=== PATIENT | female | born 1990 | race Caucasian/White ===

== ENCOUNTER 2017-01-04 17:00 | Emergency (ER) | payer OTHER ==
[2017-01-04 17:59] LABS: #Basophils 0.1 thou/uL (0.0-0.2); #Eosinphils 0.1 thou/uL (0.0-0.7); #Lymphocytes 2.3 thou/uL (1.20-3.40); #Monocytes 0.7 thou/uL (0.11-0.59); #Neutrophils 5.2 thou/uL (1.40-6.50); %Basophils 0.9 % (0.0-1.0); %Eosinophils 0.7 % (0.0-10.0); %Lymphocytes 27.6 % (21.0-51.0); %Monocytes 8.7 % (0.0-10.0); Hematocrit 37.9 % (36.0-47.0); Mean Platelet Volume 7.6 fL (7.4-10.4); Red Blood Cell (RBC) Count 4.16 mill/uL (4.20-5.40); White Blood Cell (WBC) Count 8.3 thou/uL (4.8-10.8)
[2017-01-04 18:13] LABS: Bilirubin Negative (Negative); Blood, Urine Small (Negative); Glucose, Urine (Dipstick) Negative (Negative); Ketone, Urine Negative (Negative); Nitrite Negative (Negative); Protein, Urine (Dipstick) Negative (Neg-Trace)
[2017-01-04 18:16] LABS: RBC/HPF 0-3 HPF (0-3); Squamous Epithelial 0-3 HPF (0-3); WBC/HPF 0-3 HPF (0-3)
[2017-01-04 18:17] LABS: Bacteria/HPF None Seen HPF (None Seen); Hyaline Casts/LPF 0-3 HYALINE CAST LPF (0-3 Hyaline)
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
[2017-01-04 19:28] LABS: Anion Gap 15 mmol/L (10-20); BUN (Urea Nitrogen) 11 mg/dL (7.0-18.7); Calc. Creatinine Clearance 0 mL/min (70-130); Calcium 9.6 mg/dL (7.8-10.44); Carbon Dioxide 23 mmol/L (22-29); Chloride 106 mmol/L (98-107); Estimated GFR-MDRD 77
[2017-01-04] MEDS ORDERED: Promethazine HCl 25 MG/ML VIAL ONE (19:36)
[2017-01-04] MEDS ORDERED: Acetaminophen 500 MG TAB ONE (20:36)
[2017-01-04] MEDS ORDERED: Cyclobenzaprine 10 MG TAB ONE (21:09)
[2017-01-04] MEDS ORDERED: Ketorolac Tromethamine 30 MG/ML VIAL ONE (21:09)
== END 2017-01-04 21:18 | disposition home or self-care (01) ==
LOC: SCSER 17:00
DX: N93.9 Abnormal uterine and vaginal bleeding, unspecified (principal); R10.32 Left lower quadrant pain; R10.31 Right lower quadrant pain; R11.2 Nausea with vomiting, unspecified
CPT/HCPCS: 51701; 76856; 80048; 81003; 81015; 84702; 85025; 86900; 86901; 87480; 87491; 87510; 87591; 87660; 96365; 96375; A4353; J1885; J2550

== ENCOUNTER 2017-06-26 07:24 | Emergency (ER) | payer SELFPAY ==
[2017-06-26] MEDS ORDERED: Metoclopramide HCl 10 MG/2 ML VIAL ONE (07:45)
[2017-06-26] MEDS ORDERED: methylPREDNISolone Sod Succ/PF 125 MG/2 ML VIAL ONE (07:45)
[2017-06-26] MEDS ORDERED: Ketorolac Tromethamine 30 MG/ML VIAL ONE (07:45)
[2017-06-26] MEDS ORDERED: diphenhydrAMINE 50 MG/ML VIAL ONE (07:45)
--- NOTE | 2017-06-26 08:57 | CT ---
CT HEAD NONCONTRAST: HISTORY: Head injury. Headache and vomiting. FINDINGS: No comparison. There is no evidence of acute intracranial hemorrhage or infarct. Ventricles appear normal in size, shape, and position. There is no mass effect or shift of midline structures. Visual ized paranasal sinuses remain well aerated. IMPRESSION: No acute intracranial abnormalities are demonstrated. POS: [facility]
== END 2017-06-26 08:45 | disposition home or self-care (01) ==
LOC: SCSER 07:24
DX: S09.90XA Unspecified injury of head, initial encounter (principal); R11.10 Vomiting, unspecified; Z79.899 Other long term (current) drug therapy; W50.0XXA Accidental hit or strike by another person, initial encounter
CPT/HCPCS: 70450; 96365; 96375; J1200; J1885; J2765; J2930

== ENCOUNTER 2018-04-30 09:42 | Outpatient (CLI) | payer OTHER | END 2018-04-30 09:43 | disposition home or self-care (01) | LOC: EEG 09:42 | PROVIDERS: ATTEND Psychiatry & Neurology Neurology | DX: G40.209 Localization-related (focal) (partial) symptomatic epilepsy and epileptic syndromes with complex partial seizures, not intractable, without status epilepticus (principal) | CPT/HCPCS: 95816 ==

== ENCOUNTER 2018-11-19 17:22 | Observation (INO) | payer OTHER ==
[2018-11-19] MEDS ORDERED: hydrALAZINE 20 MG/ML VIAL SLOW IVP PRN (18:56)
[2018-11-19] MEDS ORDERED: FLU VACC QS2019-20(6MOS UP)/PF 60 MCG/0.5 ML SYRINGE IM ONE (19:15)
[2018-11-19 19:32] LABS: Bilirubin Negative (Negative); Blood, Urine 1+ (Negative); Clarity Clear (Clear); Glucose, Urine (Dipstick) Normal (Negative); Leukocyte Negative Leu/uL (Negative); Nitrite Negative (Negative); Protein, Urine (Dipstick) Negative (Neg-Trace); RBC/HPF 0-3 HPF (0-3); Squamous Epithelial 0-3 HPF (0-3); Urobilinogen Normal mg/dL (Less than 2); WBC/HPF 0-3 HPF (0-3)
[2018-11-19 19:33] LABS: Bacteria/HPF 1+ HPF (None Seen)
--- NOTE | 2018-11-19 19:56 | ULT ---
ULTRASOUND OBSTETRICAL COMPLETE: DATE: 11/19/2018 HISTORY: 28-year-old female in second trimester of . Evaluate weight, position, and ce rvical length. FINDINGS: number: brown lie: Breech Maternal cervix: 4 cm. Closed internal cervical os. There is material of low to intermediate echogen icity in the cervical canal, which may represent mucous plug. Placenta: Posterior. No placenta previa. Amniotic fluid volume: RACHEAL = 10.5cm heart rate: 131 bpm The following anatomy is visualized, with no evidence of anomalies: Urinary bladder, bilateral kidneys, four-chamber heart, stomach, and posterior fossa. biometry: Biparietal diameter (BPD): 5.5 cm 22 w 4 d Head circumference (HC): 22.1 cm 24 w 1 d Abdominal circumference (AC): 19.2 cm 24 w 0 d Femur length (FL): 4.1 cm 23 w 1 d Average ultrasound age (AUA): 23 w 3 d Estimated date of delivery (CRISTINA): 03/15/2019 Estimated weight (EFW): 611 g +/- 90 g IMPRESSION: 1) Live 2nd trimester intrauterine gestation. 2) Estimated gestational age of 23 weeks, 3 days 3) breech lie. 4) cervical length 4 cm.
[2018-11-19] MEDS ORDERED: Zolpidem Tartrate 5 MG TAB PO PRN (20:49)
[2018-11-19] MEDS ORDERED: Ondansetron ODT 8 MG TAB SL PRN (20:49)
[2018-11-19] MEDS ORDERED: Lactated Ringer's 1,000 ML IV SCH (21:00)
[2018-11-19] MEDS: Lactated Ringer's 1,000 ML IV SCH (21:52)
[2018-11-19] MEDS: Ondansetron PF 4 MG/2 ML Vial IVP PRN (22:12)
[2018-11-19] MEDS ORDERED: Morphine 4 MG/ML VIAL SLOW IVP SCH (22:30)
[2018-11-20] MEDS ORDERED: Indomethacin 25 mg Capsule PO SCH ×2 (01:15→06:00)
[2018-11-20] MEDS ORDERED: Morphine 4 MG/ML VIAL SLOW IVP SCH (01:15)
[2018-11-20] MEDS: Ondansetron PF 4 MG/2 ML Vial IVP PRN (04:12)
[2018-11-20] MEDS: Lactated Ringer's 1,000 ML IV SCH (06:06)
--- NOTE | 2018-11-20 08:25 | HP ---
PRIMARY OB: Dr. Gamaliel Dalton. CHIEF COMPLAINT: Vaginal bleeding and contraction pains. HISTORY OF PRESENT ILLNESS: The patient is a 28-year-old, G3, P1, female with an intrauterine at 25 weeks and 2 days, who has presented to the emergency room with vaginal bleeding and uterine contractions. The patient reports that she was at work and started feeling crampy and contractions and after work, came home and on the advice of her doctor tried to hydrate and rest. During this process , the patient took a long shower, at which time she noticed some blood mixing with the water and had some spotting afterwards on her pad. Without resolution of her symptoms, the patient came to the emergency room for further evaluation. The patient reports that she was feeling initially these contractions about every 5 to 7 minutes. Upon presentation, the patient reports that she has had very little bleeding on her pad and reports over time that her contractions have spaced, though some of them do have more of a pain quality to them than others. She reports that she is having about 4 to 5 contractions an hour, about two of them she report is painful. The patient denies any recent falls or trauma. She does report recent illness with diet of nausea, persistent vomiting, and diarrhea earlier in the week that prompted an ER visit for IV hydration and potassium replacement. The patient denies cough. Denies chest pain or shortness of breath. The patient has had nausea and vomiting throughout the that she has been managing with Bonjesta twice a day and Phenergan p.r.n. that she takes on average about once a day. The patient denies diarrhea or constipation currently. She denies any rashes. She has some hip soreness. Denies muscle weakness. Denies change in her discharge other than the bleeding that we have described. Denies urinary urgency or frequency. PAST MEDICAL HISTORY: Inappropriate sinus tachycardia, has been off medication for about a year now. The patient was diagnosed with strep throat in the end of September and was placed on a Z-[place]. Seasonal allergies. PAST SURGICAL HISTORY: She has had two left knee arthroscopies. ALLERGIES: NO KNOWN DRUG ALLERGIES. SOCIAL HISTORY: Denies drug, alcohol, or tobacco use during this . Reports that she has occasional alcohol prior to the . MEDICATIONS: The patient is on, 1. Bonjesta b.i.d. 2. Phenergan approximately once a day. 3. vitamin daily. 4. Magnesium. 5. Potassium supplements. OB LABS: Unavailable at the time of dictation. REVIEW OF SYSTEMS: Per HPI. PHYSICAL EXAMINATION: VITAL SIGNS: Blood pressure on arrival 126/76, heart rate of 82, respiratory rate 16, and temperature 98.0. GENERAL: She appears to be in no acute distress. She does look worried and tired. She is otherwise alert and oriented, cooperative and pleasant to interact with. HEENT: Head is normocephalic and atraumatic. LUNGS: Clear to auscultation bilaterally. HEART: Regular rate and rhythm. ABDOMEN: Gravid and soft. She does have some tenderness with deviation of the uterus to the left and right. In her lower pelvis, she has some minimal fundal tenderness. No tenderness to palpation in the body of the uterus. EXTREMITIES: Nontender. Nonedematous. Vulva is without masses, lesions, or erythema. GENITALIA: On cervical exam, the patient does have some discharge and a very small amount of blood clots marred on the outside of the cervix. No active bleeding visible. The patient did get some bleeding return with manipulation of the cervix with a large [place] Q-tip. Cervical exam, the patient's cervix is fingertip and thick. heart tracing shows a fetus with baseline in 130s with moderate long-term variability. Contraction, she has a lot of irritability and irregular contractions, very different in shape and size and duration. Many of the contractions appear flat topped with irregular peaks and valleys. LABORATORY DATA: Urinalysis is negative for ketones, 1+ blood, negative for nitrites, negative for leukocyte esterase, negative white blood cells, negative squamous cells, 1+ bacteria. VP3 is negative for Trichomonas, Gardnerella, and Haylie. GC and Chlamydia are pending. Through the night, the patient has experienced occasional contractions. Again, she reports about 4 to 5 in an hour where at times 1 to 2 an hour would be painful. She reports that they last about 20 seconds. This repeat cervical exam approximately 9 hours from her previous exam is unchanged. Ultrasound done at the time of presentation shows a fetus measuring 611 g. Cervical length of 4 cm in breech presentation with RACHEAL of 10.5. She has had a dark brown smear on her pad overnight. ASSESSMENT AND PLAN: The patient is a 28-year-old, G3, P1, female with an intrauterine at 25 weeks and 2 days, who was admitted overnight for observation due to some bleeding, a fingertip dilated cervix and crampiness. Over the course of the night, the nature of her contractions or crampiness has been unchanged. Her cervix has been unchanged. Repeating a cervical length this morning to see if there is any to document or observe change. The patient has been given reassurance. She has been given two doses of morphine through the night and Ambien. The patient has been unable to sleep, which has been a chronic problem for her. I am repeating the ultrasound this morning to compare cervical length again and the patient is on Indocin as this seems to help ease her contractions for time. Bleeding has not progressed or continued. I have updated Dr. Dr. Kristin Dalton last night and should the ultrasound show no change in her cervix, we will reassess and consider discharge home. Her urinalysis though negative for nitrites, white blood cells, or leukocyte esterase, does have presence of bacteria, any absence of squamous cells. The patient has recently been on antibiotics in the last month. Given the bacteria, we will treat her with Macrobid at this time. Fetus has been reassuring for gestational age. addendum: repeat cervical length unchanged. Job ID: [id number] [facility]
--- NOTE | 2018-11-20 08:35 | PDOC.EVN ---
Event Note - Event Note Event Note: DISCHARGE NOTE At Bedside now. EGA 25 weeks I reviewed case with Dr Garcia this AM Patient has been watched overnight. Repeat CX length by evelyn was 4cm (4cm x2). Patient received indocin here for conservative care. feels better now No LOF, no corin VB FHTS reviewed...ok for WGA. Normal rate 120-130s Abd soft Final assessment and plan: Stable at 25 weeks with normal cervical length X2. ASB on UA. I have covered this information with the Patient. OK for outpateint care with roque and follow up next week with Dr Dalton. No intercourse x 2 weeks
[2018-11-20 08:41] VITALS: BMI 26.3
[2018-11-20] MEDS ORDERED: Nitrofurantoin Monohyd/M-Cryst 100 MG CAP PO SCH (09:00)
[2018-11-20 09:16] VITALS: BP 112/62; TEMP 98.7
--- NOTE | 2018-11-20 09:20 | PDOC.EVN ---
Event Note - Event Note Event Note: Note on Steroids in this case: Steroids were not ordered in this case as cervical length was greater than 4cm twice. Also, even if there was a small marginal placental separation, the patient is clinically stable and I do not suspect delivery within the next 2 weeks at this time. Patient has been DC to home in good and stable condition. We will order RH type now
--- NOTE | 2018-11-20 09:53 | PRG ---
DATE OF SERVICE: 11/20/2018 SUBJECTIVE: The patient was admitted overnight for observation secondary to uterine contractions and some vaginal bleeding at 25 weeks' gestation. Initial evaluation showed a cervix that was 4 cm in length, fingertip on exam with no active bleeding present. Through the night, she has required 2 doses of morphine and ultimately, placed on Indocin in an effort to quiet down what she is feeling. Repeat ultrasound this morning about 12 hours from her previous exam shows no change in her cervical length or findings. Repeat digital exam shows also no change. The patient reports that she feels about 2 contractions in an hour that she would report is painful and several others that she would not. The patient has been without an appetite due to nausea, which is a chronic problem for her, so she reports that she consumes about 3 quarts of water a day. OBJECTIVE: VITAL SIGNS: Within normal limits. GENERAL: She appears to be in no acute distress. She is alert, oriented, cooperative, and pleasant to interact with. HEAD: Normocephalic, atraumatic. LUNGS: Clear to auscultation bilaterally. ABDOMEN: Tender with deviation to the left and right, but unchanged from yesterday. CERVICAL: She is fingertip and thick with no presenting part palpable. LABORATORY DATA: Urinalysis shows 1+ bacteria, no squamous cells, no leukocyte esterase, no nitrites. ASSESSMENT AND PLAN: The patient is a 28-year-old female, 25 weeks and 5 days with contractions with isolated bleeding. There is no evidence of labor. She has a long cervix to 4 cm that is remained stable over the 12 hours and has bacteria for which we will be treating her with Macrobid. The oncoming physician, Dr. Lozoya, will be giving her disposition, anticipate discharge home. Job ID: [id number]
--- NOTE | 2018-11-20 10:35 | ULT ---
OB ULTRASOUND LIMITED: Date: 11/20/18 HISTORY: Evaluation for cervical length. COMPARISON: Prior day's study. FINDINGS: Real-time imaging was obtained transabdominally. The cervical canal length is 3.9 cm. heart rat e is 133 beats/minute. Fetus is breech in presentation. Placenta is posterior. On the transvaginal im aging, the cervical canal length is measured at 4.0 cm. There is a small amount of fluid seen within the cervical canal. IMPRESSION: Cervical canal length of 4.0 cm. Small amount of fluid is seen within the cervical canal. POS: [facility]
[2018-11-22 14:47] LABS: Chlamydia by PCR Not Detected (NotDetected); GC by PCR Not Detected (NotDetected)
== END 2018-11-20 09:11 | disposition home health service (06) ==
LOC: L&D/OP 17:22 → L&D 22:32
PROVIDERS: ADMIT Obstetrics & Gynecology; ATTEND Obstetrics & Gynecology
DX: O47.02 False labor before 37 completed weeks of gestation, second trimester (principal); O46.92 Antepartum hemorrhage, unspecified, second trimester; Z3A.25 25 weeks gestation of pregnancy; Z79.899 Other long term (current) drug therapy
CPT/HCPCS: 76815; 81001; 87480; 87491; 87510; 87591; 87660; 96361; 96374; 96375; 96376; G0378; J2270; J2405

== ENCOUNTER 2018-11-26 12:10 | Observation (INO) | payer OTHER ==
[2018-11-26 12:49] VITALS: BMI 27.1
[2018-11-26] MEDS ORDERED: hydrALAZINE 20 MG/ML VIAL SLOW IVP PRN (13:11)
[2018-11-26 13:37] LABS: Bacteria/HPF None Seen HPF (None Seen); Bilirubin Negative (Negative); Blood, Urine Negative (Negative); Clarity Clear (Clear); Glucose, Urine (Dipstick) Normal (Negative); Leukocyte Negative Leu/uL (Negative); Nitrite Negative (Negative); Protein, Urine (Dipstick) Negative (Neg-Trace); RBC/HPF 0-3 HPF (0-3); Squamous Epithelial None Seen HPF (0-3); Urobilinogen Normal mg/dL (Less than 2); WBC/HPF 0-3 HPF (0-3)
[2018-11-26 13:42] LABS: #Lymphocytes 1.8 thou/uL (1.20-3.40); #Monocytes 0.6 thou/uL (0.11-0.59); #Neutrophils 7.6 thou/uL (1.40-6.50); %Basophils 0.2 % (0.0-1.0); %Eosinophils 0.4 % (0.0-10.0); %Lymphocytes 17.7 % (21.0-51.0); %Monocytes 6.1 % (0.0-10.0); %Neutrophils 75.7 % (42.0-75.0); Hemoglobin 11.4 g/dL (12.0-16.0); Mean Corpuscular HGB CONC 35.8 g/dL (32.0-36.0); Mean Corpuscular Hemoglobin 33.3 pg (27.0-31.0); Mean Corpuscular Volume 92.9 fL (78.0-98.0); Mean Platelet Volume 7.5 fL (7.4-10.4); Platelet Count 302 thou/uL (130-400); RBC Distribution Width 11.3 % (11.5-14.5); Red Blood Cell (RBC) Count 3.43 mill/uL (4.20-5.40)
[2018-11-26 13:47] LABS: Urine Culture Reflex No No
--- NOTE | 2018-11-26 14:39 | ULT ---
Exam: Limited OB ultrasound HISTORY: Evaluate cervical length. Patient has bleeding COMPARISON: 11/19/2018, 11/20/2018 TECHNIQUE: Sagittal and transverse imaging of the gravid uterus is performed. FINDINGS: Cervix is redemonstrated, measuring between 4.3 and 4.6 cm. Currently, the cervix has a slightly hete rogeneous echotexture. Previously, the cervix and a fluid-filled echotexture. Currently, cervical diameter is approximately 1.0 to 1.5 cm. There is a posterior grade 3 placenta. Breech presentation. heart tones with a rate of 131 to 144 bpm. biometry: BPD 5.61 cm, 23 weeks 1 day Head circumference 22.32 cm, 24 weeks 2 days Abdominal circumference 18.18 cm, 23 weeks 0 days Femur length 4.17 cm, 23 weeks 4 days Average age by sonography is 23 weeks 4 days with estimated delivery date of 03/21/2019. Estimated feta l weight is 587 g +/- 87 g. On 11/19/2018, estimated weight was 611 g +/- 90 g. At that time the average age by sonography i s 23 weeks 3 days. There does not appear to be any significant interval growth. Amniotic fluid index is 8.5 cm IMPRESSION: 1. Single intrauterine gestation with heart tones. Average age by sonography is 23 weeks 4 days . There does not appear to be any significant interval growth. 2. Cervical length between 4.3 and 4.6 cm. Heterogeneous echotexture of the cervix may represent bloo d products. 3. Posterior, grade 3 placenta. 4. The results of the examination were given to the L&D nurse by the mechanical service specialist 11/26/2018 at the co mpletion of exam Code CR Transcribed Date/Time: 11/26/2018 3:01 PM
[2018-11-26] MEDS: Betamet Acet/Betamet Na Ph 30 MG/5 ML VIAL IM SCH (16:29)
--- NOTE | 2018-11-26 17:39 | HP ---
TIME OF SERVICE: 1710 hours. REASON FOR ADMISSION: Cervical dilatation with vaginal bleeding, possible growth restriction, and abnormal placenta at 26 weeks' gestation. HISTORY OF PRESENT ILLNESS: Ms. Riggins is a 28-year-old 3, para 1, AB 1 at [address] weeks, who sees Dr. Gamaliel Dalton. This is now her 2nd visit to Labor and Delivery in the last 7 days with the same complaints of some vaginal bleeding and small amount of contractions. She denies rupture of membranes. She reports an active fetus. She has no other complaints. Previous presentation to Labor and delivery, she was noted to have a 4 cm cervix with fluid noted in the canal. PAST MEDICAL HISTORY: Significant for; 1. Inappropriate sinus tachycardia, off medicines. 2. Seizure disorder, that was noted prepregnancy, that has resolved in and not had further evaluation. SURGICAL HISTORY: Knee arthroscopy x2. ALLERGIES: DENIES. MEDICATIONS: 1. vitamins. 2. Bonjesta. 3. Phenergan. 4. Magnesium. 5. Potassium. SOCIAL HISTORY: Denies tobacco, alcohol, or IV drug abuse. FAMILY HISTORY: Noncontributory. REVIEW OF SYSTEMS: Noncontributory. PHYSICAL EXAMINATION: GENERAL: White female, resting comfortably. VITAL SIGNS: Temperature 98.5, respirations 18, blood pressure 118/72, and pulse 85. HEENT: Within normal limits. LUNGS: Clear to auscultation bilaterally. HEART: Regular rate and rhythm. ABDOMEN: Soft and nontender with a fundal height of 25 cm, FHT is 140s. Vulva without lesions. Vagina without discharge. Cervix was anterior and soft. It was approximately 1 cm and its outer half on digital exam. EXTREMITIES: Without clubbing, cyanosis, or edema. DIAGNOSTIC STUDIES: Ultrasound reveals cervix measuring 4 cm or greater with heterogeneous echotexture with some fluid and the cervical diameter was approximately 1 to 1.5 cm. The placenta was noted to be posterior and was graded as grade 3 by the radiologist in breech presentation with FHTs of 130s to 140s. Composite gestational age is 23 weeks and 5 days with EFW of 587, which is unchanged from ultrasound performed a week ago. Amniotic fluid index was 8.5 cm. monitoring has been carried out with no spontaneous decelerations and no significant contractions noted. LABORATORY DATA: The patient's white count is 10,000 and hematocrit is 31.9 with normal platelet count. Urinalysis was negative. Blood bank, the patient was noted to be A positive. A KB stain was performed, which revealed 0.00% cells. IMPRESSION: A 26 weeks gestation with a subjectively and objectively slightly dilated cervix that is anterior, but without effacement. No contractions are noted; however, ultrasound suggests possible growth restriction and advanced age, placenta of uncertain etiology in significance. PLAN: After considering the patient's representation, continued occasional bleeding, and cervical exam that while not effaced, this is somewhat worrisome for the possibility of labor. We will go ahead and place the patient in observation status and administer betamethasone 12 mg IM q.24 h. x2 doses. We will do daily nonstress test and we will repeat ultrasound tomorrow and obtain umbilical artery Dopplers to assess if the placental appearance is impacting umbilical artery blood flow. The care plan has not been discussed with Dr. Dalton at this time, but will do so shortly. Job ID: [id number]
[2018-11-26] MEDS ORDERED: Ondansetron ODT 4 MG TAB PO PRN (18:30)
[2018-11-26] MEDS ORDERED: Acetaminophen 325 MG TAB PO PRN (18:30)
[2018-11-26] MEDS ORDERED: Calcium Carbonate 500 MG ChewTAB PO PRN (18:30)
[2018-11-26] MEDS ORDERED: Sodium Chloride 0.9% 10 ML ONE (20:09)
[2018-11-26 20:48] VITALS: BP 129/73; TEMP 98.2
--- NOTE | 2018-11-26 21:19 | PDOC.EVN ---
Event Note - Event Note Event Note: Called by RN< pt complains of back pain and vaginal pressure. Very active fetus. No bleeding currently but reports her cervix has been digitally checked many times in the last week and she has had some spotting since then. Pt denies fever or chills. Low back discomfort feels like menstrual cramps and is constant, started a few hours ago. VS WNL NAD, sitting up in bed nonlabored breathing gravid and NT abdomen, no ctx palpable NST reactive with ? uterine irritability FHT appropriate for GA A/P: Pt under observation, IVF 500ml bolus given and tylenol given orally. NST , patient interview and PE not concerning for labor in this moment. Discussed FU evalulation in 30 mins to an hour, heating pad and trial of flexeril for low back discomfort if it doesn't resolve w Tylenol reviewed.
[2018-11-26] MEDS ORDERED: Cyclobenzaprine 10 MG TAB PO PRN (21:22)
[2018-11-26] MEDS ORDERED: Sodium Chloride 0.9% 500 ML IV SCH (21:30)
[2018-11-27] MEDS ORDERED: Ondansetron PF 4 MG/2 ML Vial IVP PRN (00:30)
[2018-11-27] MEDS ORDERED: Promethazine HCl 25 MG/ML VIAL IM PRN (00:30)
[2018-11-27] MEDS ORDERED: hydrALAZINE 20 MG/ML VIAL SLOW IVP PRN (00:30)
[2018-11-27] MEDS ORDERED: NIFEdipine 10 MG CAP PO SCH (03:15)
[2018-11-27] MEDS: NIFEdipine 10 MG CAP PO SCH (04:42)
[2018-11-27 04:52] LABS: Amnisure Test No Membranes Rupture (No Rupture)
[2018-11-27 04:53] LABS: Amnisure Internal Control QC ACCEPTABLE (ACCEPTABLE)
[2018-11-27] MEDS: Acetaminophen 500 MG TAB PO PRN ×2 (05:05→16:56)
--- NOTE | 2018-11-27 07:46 | PRG ---
DATE OF SERVICE: 11/27/2018 TIME OF SERVICE: 7:25. SUBJECTIVE: Ms. Riggins was moved back to Labor and Delivery last night because of complaints of contraction on the floor. No significant contractions could be noted, but nurses felt uncomfortable with the patient's status. She had a small amount of old blood consistent with her previous complaints. She reports active fetus. She thought she had some drainage and AmniSure was checked which was negative. OBJECTIVE: VITAL SIGNS: Patient's blood pressure is 108/56, pulse 92, respirations 18, temperature 98.6. LUNGS: Clear to auscultation bilaterally. ABDOMEN: Soft and nontender with a fundal height of 26, and FHTs of 150s. PELVIC: Deferred. IMPRESSION: 26 weeks' gestation with small for gestational age sized infant, calcified placenta and a cervix worrisome for possible early labor. PLAN: Continue steroid second dose this afternoon. Repeat ultrasound with umbilical artery Dopplers and re-evaluate for placental insufficiency based on these. Dr. Garcia, OB hospitalist, will be taking over at 0800. We will check out care of plan to him. Job ID: [id number]
[2018-11-27] MEDS: NIFEdipine 10 MG CAP PO PRN ×2 (10:34→16:49)
--- NOTE | 2018-11-27 10:41 | ULT ---
OB ULTRASOUND: Date: 11/27/18 HISTORY: Abnormal placenta with possible IUGR. COMPARISON: Prior day's exam. FINDINGS: Real-time imaging of the pelvis shows a single, viable intrauterine in vertex presentation. The heart rate is 142 bpm. Placenta is posterior in location. No signs of previa. The cervical canal length is 3.5 cm. measurements are as follows: BPD: 6.2 cm, 25 weeks/0 days HC: 23.8 cm, 25 weeks/6 days AC: 19.9 cm, 24 weeks/4 days FL: 4.7 cm, 25 weeks/3 days Amniotic fluid index is 9.7. UMBILICAL DOPPLER EVALUATION: The peak systolic velocity measurement at mid cord level is 57 cm/sec end diastolic velocity is 27 cm /sec, for a systolic/diastolic ratio of 2.12. The resistive index is 0.52 with a pulsatility index of 1.23. IMPRESSION: 1. Single, viable intrauterine in vertex presentation. Overall measurements corresponding to a gestational age of 25 weeks/2 days. Estimated date of delivery is 03/10/19. These measurements a re somewhat different from the measurements obtained on the prior day's exam. The 11/19/18 study show s that this does represent a more definite progression. At that time, the estimated date of delivery was 03/15/19. 2. Estimated weight is 760, +/- 113 gm. 3. The systolic/diastolic ratio and resistive index fall outside of the 50-95 percentile range. POS: [facility]
[2018-11-27] MEDS: Betamet Acet/Betamet Na Ph 30 MG/5 ML VIAL IM SCH (16:50)
[2018-11-27] MEDS ORDERED: Zolpidem Tartrate 5 MG TAB PO PRN (19:12)
[2018-11-28] MEDS: NIFEdipine 10 MG CAP PO SCH (01:06)
--- NOTE | 2018-11-28 08:10 | DIS ---
DATE OF ADMISSION: 11/26/2018 DATE OF DISCHARGE: 11/28/2018 ADMITTING DIAGNOSES: 1. Intrauterine at 26 weeks. 2. Vaginal bleeding. 3. Contractions. DISCHARGE DIAGNOSES: 1. Intrauterine at 26 weeks. 2. Vaginal bleeding. 3. Contractions. PROCEDURES: None. CONSULTATIONS: None. HOSPITAL COURSE: The patient is a 28-year-old female G3, P1, with an intrauterine at 26 weeks, who is re-presenting to Labor and Delivery for continued vaginal bleeding. She was seen last week, was evaluated, noted to have no evidence of concern and was discharged home with close followup with her primary OB. She reports that she continues to have some bleeding that concerned her and some crampiness. Her course of stay here shows a fetus measuring a week behind, which is consistent since her anatomy scan at 19 to 20 weeks. Fluid is normal at around nine 8 to 9 cm. Cervical length has remained unchanged. During the course of stay, the patient has reported feeling somewhat better and accepting of her symptoms. She does continue to have a small amount of bleeding periodically. However, fetus has continued to have reassuring tracing. Today is hospital day 2, she is status post steroid administration during this hospitalization. Most current portion of her tracing shows a baseline in the 130s with moderate long-term variability and positive 15 x 15 accelerations. Tocometer is quiet without any contractions visible. PHYSICAL EXAMINATION: VITAL SIGNS: At time of discharge, blood pressure 117/64, pulse of 100, temperature 98.6. GENERAL: She appears to be in no acute distress. She is alert, oriented, cooperative, and pleasant to interact with. ABDOMEN: Soft, nontender. EXTREMITIES: Nontender and nonedematous. The patient will be discharged to home. Her cervix will be checked just for precautionary reasons; however, without any contractions, and multiple ultrasounds confirming a nice long cervix at 4+ cm. Do not anticipate any changes. The patient has follow up with Dr. Dalton on the that she has been encouraged to keep. Job ID: [id number]
== END 2018-11-28 08:35 | disposition home health service (06) ==
LOC: L&D/OP 12:10 → L&D 17:20 → INTOOBSV 17:20 → 3SE 18:41 → L&D 11-27 00:41
PROVIDERS: ADMIT Obstetrics & Gynecology; ATTEND Obstetrics & Gynecology
DX: O47.02 False labor before 37 completed weeks of gestation, second trimester (principal); O46.92 Antepartum hemorrhage, unspecified, second trimester; Z3A.26 26 weeks gestation of pregnancy
CPT/HCPCS: 36415; 76700; 76815; 81001; 84112; 85025; 85460; 86900; 86901; 87086; 96360; 96372; 99285; G0378; J0702